=== PATIENT | female | born 1930 | race Caucasian/White ===

== ENCOUNTER → 2017-11-28 | Outpatient (CLI) | payer MEDICARE, OTHER | END | disposition home or self-care (01) | LOC: KCIC MRI 10:33 | DX: M51.16 Intervertebral disc disorders with radiculopathy, lumbar region (principal); M48.061 Spinal stenosis, lumbar region without neurogenic claudication; M71.38 Other bursal cyst, other site | CPT/HCPCS: 72148 ==

== ENCOUNTER → 2018-03-26 | Outpatient (CLI) | payer MEDICARE, OTHER ==
[~2018-03-26] MED LIST: ACET-704 PO; AMLO5TAB7 PO; CETI10TA16 PO; CITA20TA9 PO; CLON1TAB4 PO; CYCL1DRO EACHEYE; DEXT15DR17 OP; HYDR28.3 TP; KETO15CR2 TP; LEVO75TA PO; LOSA25TA5 PO; PRED2.5T PO; PRED5DRO16 EACHEYE; SIMV20TA3 PO
--- NOTE | 2018-03-26 15:12 | KCIC ---
MR of the left shoulder Indication: Patient fell March 20, 2018. Pain and limited range of motion. Technique: Standard multiplanar sequences are obtained. Findings: Artifact: Mild motion degradation Acromioclavicular joint:Intact. Rotator cuff: * Supraspinatus-infraspinatus tendon: Full-thickness tear of the anterior supraspinatus tendon, measures about 1 cm AP diameter with up to 1 cm retraction. Tendinosis through the remaining tendon. Intrasubstance signal within the more posterior rotator cuff. No complete full-thickness rupture. Intraosseous cyst at the subtendinous greater tuberosity. * Subscapularis tendon: Partial tear * Muscle bulk: Mild atrophy * Subacromial subdeltoid bursa: Mild effusion. Fluid: Small glenohumeral effusion. Glenohumeral cartilage: Mild degenerative change Labrum: There is a small hypointense structure posterior to the posterior inferior labrum, thought to represent a component of the capsule, although a mildly detached labral tear is possible. Biceps tendon: Intact Bones: No lesion or acute fracture. Soft tissue: Mild soft tissue edema or contusion along the anterior shoulder. Mild edema within the deltoid muscle. Impression: 1. Small full-thickness tear of the anterior supraspinatus tendon. Partial subscapularis tendon tear. 2. Hypointense structure along the posterior inferior labrum could represent a component of the capsule, versus a detached posteroinferior labral tear. Electronically signed by: Fermin Cooper MD (03/26/2018 3:09 PM) [id number]
== END | disposition home or self-care (01) ==
LOC: KCIC MRI 12:06
DX: S46.812A Strain of other muscles, fascia and tendons at shoulder and upper arm level, left arm, initial encounter (principal); Z79.899 Other long term (current) drug therapy; W19.XXXA Unspecified fall, initial encounter; Y93.89 Activity, other specified; Y92.89 Other specified places as the place of occurrence of the external cause; Y99.8 Other external cause status
CPT/HCPCS: 73221